=== PATIENT | female | born 1980 | race Caucasian/White ===

== ENCOUNTER → 2022-11-22 11:00 | Outpatient (BNVA) | payer OTHER, SELFPAY | PROVIDERS: Visit Provider Nurse Practitioner Women's Health | DX: Z12.4 Encounter for screening for malignant neoplasm of cervix (principal); Z01.419 Encounter for gynecological examination (general) (routine) without abnormal findings; N92.6 Irregular menstruation, unspecified | CPT/HCPCS: 87624 ==